=== PATIENT | male | born 1975 | race Caucasian/White ===

== ENCOUNTER 2019-09-18 07:59 | Emergency (ER) | payer MEDICARE, MEDICAID ==
[~2019-09-18] VITALS: Ht 180.3 cm; Wt 75.0 kg
[2019-09-18 09:22] LABS: AMPHET/METH SCREEN,URINE POSITIVE (NEGATIVE); BARBITURATE SCREEN, URINE NEGATIVE (NEGATIVE); BENZODIAZEPINES SCREEN,URINE NEGATIVE (NEGATIVE); CANNABINOID SCREEN,URINE NEGATIVE (NEGATIVE); COCAINE SCREEN,URINE NEGATIVE (NEGATIVE); METHADONE SCREEN, URINE NEGATIVE (NEGATIVE); OPIATE SCREEN,URINE NEGATIVE (NEGATIVE)
[2019-09-18 09:29] LABS: PHENCYCLIDINE SCREEN,URINE NEGATIVE (NEGATIVE)
[2019-09-18] MEDS ORDERED: LORazepam 1 MG TABLET PO ONE (09:45)
[2019-09-18 10:25] VITALS: BP 150/88
== END 2019-09-18 10:47 | disposition home or self-care (01) ==
LOC: EMS 08:03
DX: F15.10 Other stimulant abuse, uncomplicated (principal)